=== PATIENT | female | born 1960 | race African-American/Black ===

== ENCOUNTER 2016-12-05 13:01 | Emergency (ER) | payer OTHER ==
--- NOTE | 2016-12-05 13:55 | ED ---
Dizziness - HPI Summary HPI Summary: Patient was visiting her daughter in the ED while she was being evaluated when she became lightheaded, sweaty and dizzy. She has a heart history so she signed in to be evaluated. She denies CP, SOB, KAMARA, vision changes, or nausea. She took her daily medications today, but admits she has not had anything to eat or drink today because she is caring for her daughter's three children due to her injury. - History Of Current Complaint Chief Complaint: EDDizziness Stated Complaint: NEAR SYNCOPE Time Seen by Provider: 12/05/16 13:24 Hx Obtained From: Patient, Family/Board Certified Music Therapist Timing: Minutes Severity Initially: Severe Severity Currently: Mild Character: Lightheaded Aggravating Factor(s): Nothing Alleviating Factor(s): Rest Associated Signs And Symptoms: Positive: Diaphoresis - mild, Decreased Oral Intake Related History: Similar Episode/Dx as - history of anxiety and lightheadedness - Allergies/Home Medications Allergies/Adverse Reactions: Allergies Allergy/AdvReac Type Severity Reaction Status Date / Time Clindamycin Allergy Hives Verified 06/17/14 11:37 [From Cleocin HCl] PMH/Surg Hx/FS Hx/Imm Hx Cardiovascular History: Reports: Hx Coronary Artery Disease, Hx Hypertension - Surgical History Surgery Procedure, Year, and Place: appy Infectious Disease History: No Infectious Disease History: Denies: Traveled Outside the [place] in Last 30 Days - Family History Known Family History: Positive: Cardiac Disease, Hypertension - Social History Occupation: Unemployed Lives: With Family Alcohol Use: None Substance Use Type: Reports: None Smoking Status (MU): Never Smoked Tobacco Review of Systems Positive: Skin Diaphoresis - mild. Negative: Fever, Chills Negative: Photophobia, Blurred Vision Positive: Other - lightheaded. Negative: Chest Pain Negative: Shortness Of Breath, Cough Negative: Vomiting, Nausea Negative: Myalgia Negative: Headache, Weakness, Paresthesia, Numbness All Other Systems Reviewed And Are Negative: Yes Physical Exam Triage Information Reviewed: Yes Vital Signs On Initial Exam: Initial Vitals Temp Pulse Resp BP Pulse Ox 97.6 F 81 18 132/73 100 12/05/16 13:16 12/05/16 13:16 12/05/16 13:16 12/05/16 13:16 12/05/16 13:16 Vital Signs Reviewed: Yes Appearance: Positive: Well-Appearing, No Pain Distress, Thin Head/Face: Positive: Normal Head/Face Inspection Eyes: Positive: EOMI, HAKEEM, Conjunctiva Clear ENT: Positive: Hearing grossly normal Respiratory/Lung Sounds: Positive: Breath Sounds Present Neurological: Positive: Alert, Oriented to Person Place, Time, Normal Gait Psychiatric: Positive: Affect/Mood Appropriate AVPU Assessment: Alert Diagnostics - Vital Signs Vital Signs Temp Pulse Resp BP Pulse Ox 12/05/16 13:16 97.6 F 81 18 132/73 100 - Laboratory Lab Statement: Any lab studies that have been ordered have been reviewed, and results considered in the medical decision making process. Dizzy Course/Dx - Course Course Of Treatment: When I went in to evaluate the patient she said she felt much better and wanted to get her daughter and grandchildren home. I recommended that she stay for evaluation but she wanted to sign out AMA. The appropriate paperwork was signed and she left in stable condition. - Diagnoses Differential Diagnosis/HQI/PQRI: Anxiety, Coronary Artery Disease, Hyperventilation, Hypovolemia, Transient Ischemic Attack, Vasovagal Reaction Provider Diagnoses: Dizziness Discharge - Discharge Plan Condition: Stable Disposition: AGAINST MEDICAL ADVICE
[2016-12-05 14:04] VITALS: BP 111/66
== END 2016-12-05 14:25 | disposition left against medical advice (07) ==
LOC: ED 13:01
DX: R42 Dizziness and giddiness (principal); Z53.21 Procedure and treatment not carried out due to patient leaving prior to being seen by health care provider; R61 Generalized hyperhidrosis
CPT/HCPCS: 93005; 99282

== ENCOUNTER 2017-09-24 21:26 | Emergency (ER) | payer OTHER ==
[2017-09-24 21:35] VITALS: BP 119/93
[2017-09-24] MEDS ORDERED: Ibuprofen TAB* 600 MG PO ONE ×2 (21:42→22:15)
[2017-09-24] MEDS ORDERED: oxyCODONE/Acetamin 5/325 MG* TAB PO ONE (21:42)
[2017-09-24] MEDS ORDERED: HYDROcodone/ACETAMIN 5-325 MG* 1 TAB PO ONE (21:49)
--- NOTE | 2017-09-24 21:49 | UC ---
Lower Extremity/Ankle HPI - HPI Summary HPI Summary: 57 year old female with history of CAD, HTN, anxiety here with right great toe pain. She reports frozen pork rib fell on her from her freezer. 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 No numbness or tingling. Mild swelling. No trial of pain medications at home. - History of Current Complaint Chief Complaint: UCLowerExtremity Stated Complaint: FOOT INJURY Time Seen by Provider: 09/24/17 21:37 - Allergies/Home Medications Allergies/Adverse Reactions: Allergies Allergy/AdvReac Type Severity Reaction Status Date / Time Clindamycin Allergy Hives Verified 09/24/17 21:35 [From Cleocin HCl] Home Medications: Home Medications Multiple Vitamins W/ Minerals [Multivitamin Adults] 1 tab PO DAILY 09/24/17 [ History Confirmed 09/24/17] RX: Diazepam TAB(*) [Valium TAB(*)] 5 mg PO DAILY PRN 09/24/17 [History Confirmed 09/24/17] RX: Escitalopram (NF) [Lexapro 10 mg (NF)] 10 mg PO DAILY 09/24/17 [History Confirmed 09/24/17] RX: Rosuvastatin Calcium 10 mg PO DAILY 09/24/17 [History Confirmed 09/24/17] RX: Vitamin B Complex CAP* [B Complex CAP*] 1 cap PO DAILY 09/24/17 [History Confirmed 09/24/17] PMH/Surg Hx/FS Hx/Imm Hx - Surgical History Surgical History: Yes Surgery Procedure, Year, and Place: appy - Family History Known Family History: Positive: Cardiac Disease, Hypertension - Social History Alcohol Use: Occasionally Substance Use Type: None Smoking Status (MU): Current Every Day Smoker Review of Systems Constitutional: Negative Skin: Negative Eyes: Negative ENT: Negative Respiratory: Negative Cardiovascular: Negative Gastrointestinal: Negative Genitourinary: Negative Motor: Negative Neurovascular: Negative Musculoskeletal: Negative Neurological: Other - right great toe pain Psychological: Negative All Other Systems Reviewed And Are Negative: Yes Physical Exam Triage Information Reviewed: Yes Appearance: Well-Appearing, No Pain Distress Vital Signs: Initial Vital Signs Temp 36.7 C 09/24/17 21:27 Pulse 88 09/24/17 21:27 Resp 24 09/24/17 21:27 BP 119/93 09/24/17 21:27 Pulse Ox 100 09/24/17 21:27 Eye Exam: Normal ENT Exam: Normal Neck exam: Normal Neck: Positive: 1 Respiratory Exam: Normal Cardiovascular Exam: Normal Abdominal Exam: Normal Musculoskeletal Exam: Normal Musculoskeletal: Positive: Edema @ - Right first toe distal phalanges swelling and tenderness No abrasion No Subungual hematoma, Other: - No tenderness over cuniform or navicular Neurological Exam: Normal Psychological Exam: Normal Skin Exam: Normal Lower Extremity Course/Dx - Course Course Of Treatment: Right great toe pain - Differential Dx/Diagnosis Differential Diagnosis/HQI/PQRI: Contusion, Sprain, Strain Provider Diagnoses: Xray with questionable non-dispalced distal phalanx fx. Discharge - Discharge Plan Condition: Good Disposition: HOME Prescriptions: Ibuprofen [Ibuprofen 200 MG] 600 mg PO Q6HR PRN #20 cap PRN Reason: Pain Patient Education Materials: Toe Fracture (ED) Referrals: Connie Ivey MD [Primary Care Provider] - Mu Langston MD [Medical Doctor] - Additional Instructions: Keep feet elevated. Apply ice for he first 24 hours.
--- NOTE | 2017-09-24 22:02 | RAD ---
HISTORY: Right foot pain, trauma COMPARISONS: None VIEWS: 3, Frontal, lateral, and oblique views of the right foot FINDINGS: BONE DENSITY: Normal. BONES: There is a faint linear lucency along the medial aspect of the base of the distal phalanx of the first digit. JOINTS: There is osteoarthritis of the first MTP joint. ALIGNMENT: There is no dislocation. SOFT TISSUES: Unremarkable. OTHER FINDINGS: None. IMPRESSION: QUESTIONABLE NONDISPLACED FRACTURE OF THE BASE OF THE DISTAL PHALANX OF THE FIRST DIGIT. RECOMMEND CORRELATION WITH SITE OF PAIN
[2017-09-24] MEDS ORDERED: Ibuprofen TAB* 600 MG ONE (22:15)
== END 2017-09-24 22:23 | disposition home or self-care (01) ==
LOC: UCEAST 21:26
DX: M79.674 Pain in right toe(s) (principal); I25.10 Atherosclerotic heart disease of native coronary artery without angina pectoris; I10 Essential (primary) hypertension; F41.9 Anxiety disorder, unspecified; Z88.1 Allergy status to other antibiotic agents; F17.210 Nicotine dependence, cigarettes, uncomplicated
CPT/HCPCS: 99213; A9270-GY; G0463